=== PATIENT | male | born 1995 | race Caucasian/White ===

== ENCOUNTER 2018-12-22 13:43 | Day surgery (SDC) | payer OTHER ==
[~2018-12-22] VITALS: Ht 165.1 cm; Wt 78.3 kg
[~2018-12-22 13:43] MED LIST: OMEP20CA16 PO; PHEN57OI3 RC
[2018-12-22 14:17] VITALS: Ht 165.1 cm; Wt 78.3 kg
[2018-12-22] MEDS ORDERED: ALLERGY MED (14:22)
[2018-12-22 14:28] VITALS: BP 121/63; PULSE 80; RESP 15
[2018-12-22] MEDS ORDERED: LIDOCAINE 4% SOLUTION 50 ML BTL ONE (14:34)
[2018-12-22] MEDS ORDERED: MIDAZOLAM 1 MG/ML 2 ML INJ ONE (15:30)
[2018-12-22] MEDS ORDERED: FENTAnyl 50 MCG/ML VIAL ONE (15:30)
[2018-12-22 15:47] VITALS: BP 128/67; RESP 24
== END 2018-12-22 15:56 | disposition home or self-care (01) ==
LOC: GIL 13:43
PROVIDERS: ATTEND Internal Medicine
DX: K29.50 Unspecified chronic gastritis without bleeding (principal); K29.80 Duodenitis without bleeding
CPT/HCPCS: 43239; 88305; 88312; J2250; J3010; Z7610